=== PATIENT | female | born 1990 | race Hispanic/Latino ===

== ENCOUNTER 2017-10-21 01:06 | Emergency (ER) | payer MEDICAID, OTHER ==
[2017-10-21 01:08] VITALS: BMI 20.5
[2017-10-21 01:28] VITALS: PULSE 78; RESP 18; TEMP 97.9; O2SAT 98
--- NOTE | 2017-10-21 01:29 | ED PDOC ---
Arrival/HPI - General Time Seen by Provider: 10/21/17 01:14 Historian: Patient - History of Present Illness Narrative History of Present Illness (Text): 10/21/17 01:29 A 27 year old female presents to the emergency department for evaluation of drug withdrawal. Patient reports she was buying Percocet off the street, started about 3 months ago. Reports to taking Percocet daily since then, stopped taking it 48 hours ago. Patient presents to the emergency department with abdominal cramping and feeling shaky. Patient reports she feels she is having withdrawals. Reports she wants something to help her to get through this for next couple days. Patient denies any fever, dizziness or any other complaints at this time. Symptom Onset: Sudden Symptom Course: Unchanged Activities at Onset: Rest Context: Home Past Medical History - Provider Review Nursing Documentation Reviewed: Yes - Psychiatric Hx Substance Use: No Family/Social History - Physician Review Nursing Documentation Reviewed: Yes Family/Social History: No Known Family HX Smoking Status: Light Smoker < 10 Cigarettes Daily Hx Alcohol Use: Yes Hx Substance Use: No Allergies/Home Meds Allergies/Adverse Reactions: Allergies No Known Allergies Allergy (Verified 02/21/16 23:22) Review of Systems - Physician Review All systems were reviewed & negative as marked: Yes - Review of Systems Constitutional: Other (shaky). absent: Fevers Gastrointestinal: Abdominal Pain (cramping) Neurological: absent: Dizziness Physical Exam Vital Signs Reviewed: Yes Vital Signs Temp Pulse Resp Pulse Ox 10/21/17 01:27 97.9 F 78 18 98 Temperature: Afebrile Blood Pressure: Normal Pulse: Regular Respiratory Rate: Normal Appearance: Positive for: Well-Appearing, Non-Toxic, Comfortable Pain Distress: None Mental Status: Positive for: Alert and Oriented X 3 - Systems Exam Head: Present: Atraumatic, Normocephalic Pupils: Present: PERRL Extroacular Muscles: Present: EOMI Conjunctiva: Present: Normal Mouth: Present: Moist Mucous Membranes Neck: Present: Normal Range of Motion Respiratory/Chest: Present: Clear to Auscultation, Good Air Exchange. No: Respiratory Distress, Accessory Muscle Use Cardiovascular: Present: Regular Rate and Rhythm, Normal S1, S2. No: Murmurs Abdomen: Present: Normal Bowel Sounds. No: Tenderness, Distention, Peritoneal Signs Back: Present: Normal Inspection Upper Extremity: Present: Normal Inspection. No: Cyanosis, Edema Lower Extremity: Present: Normal Inspection. No: Edema Neurological: Present: GCS=15, CN II-XII Intact, Speech Normal Skin: Present: Warm, Dry, Normal Color. No: Rashes Psychiatric: Present: Alert, Oriented x 3, Normal Insight, Normal Concentration Medical Decision Making ED Course and Treatment: 10/21/17 01:28 Impression: A 27 year old female with Percocet withdrawal. Plan: -- Reassess and disposition Prior Visits: Notes and results from previous visits were reviewed. Patient was last seen in the emergency department on 09/24/16 for evaluation of diffuse body rashes. Progress Notes: 10/21/17 01:41 On re-evaluation, patient feels better and is in no acute distress. I have discussed the results and plan with the patient, who expresses understanding. Patient in agreement with plan to be discharged home. Patient is stable for discharge. Patient was instructed to follow up with physician or return if symptoms worsen or new concerning symptoms arise. - Medication Orders Current Medication Orders: Diphenhydramine HCl (Benadryl) 50 mg PO STAT STA Stop: 10/21/17 01:37 - Scribe Statement The provider has reviewed the documentation as recorded by the Kimberly Booker Provider Scribe Attestation: All medical record entries made by the Scribe were at my direction and personally dictated by me. I have reviewed the chart and agree that the record accurately reflects my personal performance of the history, physical exam, medical decision making, and the department course for this patient. I have also personally directed, reviewed, and agree with the discharge instructions and disposition. Disposition/Present on Arrival - Present on Arrival Any Indicators Present on Arrival: No History of DVT/PE: No History of Uncontrolled Diabetes: No Urinary Catheter: No History of Decub. Ulcer: No History Surgical Site Infection Following: None - Disposition Have Diagnosis and Disposition been Completed?: Yes Diagnosis: Narcotic withdrawal Disposition Time: 01:30 Patient Plan: Discharge Patient Problems: Current Active Problems Problem Status Onset Narcotic withdrawal Acute Condition: GOOD Discharge Instructions (ExitCare): Prescription Drug Withdrawal (DC) Additional Instructions: Nettie- I believe you are doing the right thing for yourself. Stay Strong. Ativan is for anxiety and will make you sleep. Vistaril is for the skin crawling/ itching. Zofran OCT is for Nausea/Vomiting. Sacha griffin- Johnny- Dr. Kashif Recinos Prescriptions: LORazepam [Ativan] 2 mg PO TID #4 tab
[2017-10-21 01:59] VITALS: BP 134/86
== END 2017-10-21 02:00 | disposition home or self-care (01) ==
LOC: ED 01:06
DX: F11.23 Opioid dependence with withdrawal (principal); F17.210 Nicotine dependence, cigarettes, uncomplicated